=== PATIENT | female | born 1950 | race Caucasian/White ===

== ENCOUNTER 2025-03-01 04:14 | Emergency (ER) | payer MEDICARE, OTHER | END 2025-03-01 05:30 | disposition home or self-care (01) | LOC: JP.ED 04:14 | DX: F41.9 Anxiety disorder, unspecified (principal); Z88.5 Allergy status to narcotic agent; Z88.8 Allergy status to other drugs, medicaments and biological substances; Z79.899 Other long term (current) drug therapy; Z86.16 Personal history of COVID-19 | CPT/HCPCS: 99284; A9270 ==